=== PATIENT | female | born 1950 | race Caucasian/White ===

== ENCOUNTER 2017-07-27 18:47 | Emergency (ER) | payer MEDICARE, OTHER ==
[~2017-07-27] VITALS: Ht 162.6 cm; Wt 75.0 kg
[~2017-07-27 18:47] MED LIST: BECL0.07 INH; CALC-179 OR; CLAR10TA7 PO; GEMF600T PO; LISI-360 PO; MULT-65 PO; SERT50 PO
[2017-07-27 18:49] VITALS: BP 140/85; PULSE 90; RESP 13; TEMP 98.7; O2SAT 98
--- NOTE | 2017-07-27 19:22 | RADRPT ---
EXAM DATE/TIME: 07/27/2017 19:05 [facility] COMPARISON: No previous studies available for comparison. INDICATIONS : Patient fell today and complains of left ankle pain. MEDICAL HISTORY : None. SURGICAL HISTORY : None. ENCOUNTER: Initial ACUITY: 1 day PAIN SCORE: 2/10 LOCATION: Left Ankle FINDINGS: Three view exam was performed of the left ankle. The bony structures are in normal alignment. No ev idence of fracture, dislocation, or soft tissue swelling. The ankle mortise is intact. No radiopaqu e foreign bodies are seen. Bony mineralization is normal. CONCLUSION: No acute findings. Prominent calcaneal spur Contreras Herring MD on July 27, 2017 at 19:20 Board Certified Radiologist. This report was verified electronically.
[2017-07-27] MEDS ORDERED: DICL75TA PO (20:06)
--- NOTE | 2017-07-27 20:10 | PD ---
HPI Chief Complaint: Injury Time Seen by Provider: 20:01 Travel History International Travel<30 days: No Contact w/Intl Traveler<30days: No Traveled to known affect area: No History of Present Illness HPI 67-year-old white female presents to emergency Department with complaints of left ankle pain after inversion injury sustained in a hole this afternoon while walking in [place]. She states that she did not feel any pop or crack initially. She states that she was able to continue to walk throughout the day. When she had gotten home and taken a break she realizes that she cannot bear weight on her foot. She states the pain is severe. Worse weightbearing. Some relief with elevation. No other injuries. PFSH Past Medical History Arthritis: Yes Depression: Yes Cardiac Catheterization: Yes Diminished Hearing: No Tetanus Vaccination: < 5 Years Menopausal: Yes Tubal Ligation: Yes Past Surgical History Cholecystectomy: Yes Other Surgery: Yes (SURGERY TO REMOVE EXTRA BONE IN NECK AREA-THEN R ARM CLOT REMOVAL) Social History Alcohol Use: No Tobacco Use: No (FORMER QUIT MARCH 2016) Substance Use: No Allergies-Medications (Allergen,Severity, Reaction): Coded Allergies: acetaminophen (Unverified Allergy, Severe, 05/15/17) carisoprodol (Unverified Allergy, Severe, 05/15/17) oxycodone (Unverified Allergy, Severe, 05/15/17) pneumococcal vaccine (Unverified Allergy, Severe, 05/15/17) propoxyphene (Unverified Allergy, Severe, 05/15/17) diatrizoate meglumine (Unverified Allergy, Mild, 05/15/17) gadobenic acid (Unverified Allergy, Mild, 05/15/17) gadodiamide (Unverified Allergy, Mild, 05/15/17) gadoteridol (Unverified Allergy, Mild, 05/15/17) hydrocodone (Unverified Allergy, Mild, RASH, 05/15/17) iodixanol (Unverified Allergy, Mild, 05/15/17) iohexol (Unverified Allergy, Mild, 05/15/17) Reported Meds & Prescriptions Reported Meds & Active Scripts Active Reported Qvar (Beclomethasone Dipropionate) 40 Mcg Aer 1 Puff INH BID Multi-Vitamin Daily (Multivitamins) Daily Tab 1 Tab PO DAILY Calcium (Calcium & Phosphorus W/ Vitami) Tab 1 OR Lisinopril 10 Mg Tab 10 Mg PO DAILY Claritin (Loratadine) 10 Mg Tab 10 Mg PO DAILY Gemfibrozil 600 Mg Tab 600 Mg PO BID Zoloft (Sertraline HCl) 50 Mg Tab 50 Mg PO DAILY Review of Systems General / Constitutional: No: Fever Eyes: No: Visual changes HENT: No: Headaches Cardiovascular: No: Chest Pain or Discomfort Respiratory: No: Shortness of Breath Gastrointestinal: No: Abdominal Pain Genitourinary: No: Dysuria Musculoskeletal: Positive: Arthralgias, Limited ROM, Edema, Pain, No: Weakness Skin: No Rash Neurologic: No: Weakness Psychiatric: No: Depression Endocrine: No: Polydipsia Hematologic/Lymphatic: No: Easy Bruising Physical Exam Narrative GENERAL: This is a well-nourished, well-developed patient, in no apparent distress. SKIN: No rashes, ecchymoses or lesions. Warm and dry. HEAD: Atraumatic. Normocephalic. EYES: PERRL, EOMI, no discharge or injection. No scleral icterus. EARS: Clear NOSE: Nasal turbinates appear normal. THROAT: Mucosa pink and moist. Airway patent. NECK: Trachea midline. supple, moves head freely. LUNGS: Clear to auscultation. CV: Regular in rhythm. ABDOMEN: Soft nontender. EXT: No clubbing cyanosis. Examination of left lower extremity reveals pain to the anterior talar fibular ligament region of the left foot and ankle. There is no pain in distal forefoot, heel, Achilles, mediolateral malleolus. There is minimal swelling. The skin is intact. She has intact sensation with good distal pulses. No pain in the or hip. Right lower extremity as well as upper extremities are without localizing bony tenderness or deformity. Neurovascular intact. Data Data Last Documented VS Vital Signs Date Time Temp Pulse Resp B/P (MAP) Pulse Ox O2 Delivery O2 Flow Rate FiO2 07/27/17 18:49 98.7 90 13 140/85 (103) 98 Orders Orders Ankle, Complete ([id number]) (07/27/17 ) Ice/Cold Pack (07/27/17 20:03) Splint Or Brace Apply/Monitor (07/27/17 20:03) Crutches (07/27/17 20:03) Ibuprofen (Motrin) (07/27/17 20:15) Ed Discharge Order (07/27/17 20:03) [facility] Medical Decision Making Medical Screen Exam Complete: Yes Emergency Medical Condition: Yes Medical Record Reviewed: Yes Interpretation(s) Last 24 hours Impressions Ankle X-Ray 07/27/17 0000 Signed Impressions: Service Date/Time: Sunday, July 27, 2017 19:05 - CONCLUSION: No acute findings. Prominent calcaneal spur Contreras Herring MD Differential Diagnosis MDM: High Differential diagnoses: Fracture, sprain, strain, dislocation, contusion, neurovascular injury Narrative Course X-ray of the left ankle is negative for bony injury. Patient's given Kash wrap, crutches, Motrin 600 mg by mouth, ice pack applied. This is left ankle sprain Diagnosis Primary Impression: left ankle sprain Patient Instructions: General Instructions Additional Instructions: Rest. Elevation. Ice packs for the next 3 days. Kash wrap and crutches. No weight-bearing and then progress to weight-bearing as tolerated. Medications as directed Follow-up with an orthopedist or your doctor in one week. Return to the ER if any problems Med/Other Pt SpecificInfo: Prescription(s) given Scripts Diclofenac Sodium DR (Diclofenac Sodium DR) 75 Mg Tabdr 75 MG PO BID, #14 TAB 0 Refills Prov: Narinder Gerber MD 07/27/17 Disposition: 01 DISCHARGE HOME Condition: Stable Contreras Reynolds Jul 27, 2017 20:10
[2017-07-27] MEDS ORDERED: IBUPROFEN 600 MG TAB PO ONE (20:15)
== END 2017-07-27 20:47 | disposition home or self-care (01) ==
LOC: NEPK 18:47
DX: S93.402A Sprain of unspecified ligament of left ankle, initial encounter (principal); X50.1XXA Overexertion from prolonged static or awkward postures, initial encounter; Y93.01 Activity, walking, marching and hiking; M19.90 Unspecified osteoarthritis, unspecified site; F32.9 Major depressive disorder, single episode, unspecified
CPT/HCPCS: 73610; 99283; E0113

== ENCOUNTER 2017-09-19 07:57 | Emergency (ER) | payer MEDICARE, OTHER ==
[~2017-09-19] VITALS: Ht 162.6 cm; Wt 75.0 kg
[~2017-09-19 07:57] MED LIST changes: +DICL75TA PO
[2017-09-19 07:58] VITALS: BP 127/60; PULSE 101; RESP 16; TEMP 100.1; O2SAT 95
[2017-09-19] MEDS ORDERED: SERT-132 PO (08:22)
--- NOTE | 2017-09-19 09:48 | PD ---
HPI Chief Complaint: Cold / Flu Symptoms Time Seen by Provider: 08:14 Travel History International Travel<30 days: No Contact w/Intl Traveler<30days: No Traveled to known affect area: No History of Present Illness HPI This is a 67-year-old female who presents to the emergency department with dry cough, body aches and fever for 3 days ever since she came off of the cruciate, constant, moderate severity with no associated vomiting. She has had some loose stools. She was told to days ago by her primary care doctor that she probably has the flu. She was given some codeine cough syrup but she feels like she is just getting worse. She does have a long smoking history but she hasn't smoked in 2 years. PFSH Past Medical History Arthritis: Yes Depression: Yes Cardiac Catheterization: Yes Diminished Hearing: No Deep Vein Thrombosis: Yes Tetanus Vaccination: > 5 Years Influenza Vaccination: Yes Menopausal: Yes Tubal Ligation: Yes Past Surgical History Cholecystectomy: Yes Other Surgery: Yes (SURGERY TO REMOVE EXTRA BONE IN NECK AREA-THEN R ARM CLOT REMOVAL) Social History Alcohol Use: No Tobacco Use: No (FORMER QUIT MARCH 2016) Substance Use: No Allergies-Medications (Allergen,Severity, Reaction): Coded Allergies: acetaminophen (Unverified Allergy, Severe, 09/19/17) carisoprodol (Unverified Allergy, Severe, 09/19/17) oxycodone (Unverified Allergy, Severe, 09/19/17) pneumococcal vaccine (Unverified Allergy, Severe, 09/19/17) propoxyphene (Unverified Allergy, Severe, 09/19/17) diatrizoate meglumine (Unverified Allergy, Mild, 09/19/17) gadobenic acid (Unverified Allergy, Mild, 09/19/17) gadodiamide (Unverified Allergy, Mild, 09/19/17) gadoteridol (Unverified Allergy, Mild, 09/19/17) hydrocodone (Unverified Allergy, Mild, RASH, 09/19/17) iodixanol (Unverified Allergy, Mild, 09/19/17) iohexol (Unverified Allergy, Mild, 09/19/17) Reported Meds & Prescriptions Reported Meds & Active Scripts Active Reported Sertraline (Sertraline HCl) 50 Mg Tab 50 Mg PO DAILY Review of Systems Except as stated in HPI: all other systems reviewed are Neg Physical Exam Narrative GENERAL:Well appearing, no acute distress SKIN: Focused skin assessment warm and dry. HEAD: Atraumatic. Normocephalic. EYES: Pupils equal and round. No injection or drainage. ENT: Moist mucous membranes NECK: Trachea midline. CARDIOVASCULAR: Regular rate and rhythm. No murmur appreciated. RESPIRATORY: Diffuse expiratory wheezing, no Rales, no tachypnea or increased work of breathing GASTROINTESTINAL: Abdomen soft, non-tender, nondistended. MUSCULOSKELETAL: No obvious deformities. NEUROLOGICAL: Awake and alert. No obvious cranial nerve deficits. Moving all extremities. PSYCHIATRIC: Appropriate mood and affect; insight and judgment normal. Data Data Last Documented VS Vital Signs Date Time Temp Pulse Resp B/P (MAP) Pulse Ox O2 Delivery O2 Flow Rate FiO2 09/19/17 08:11 103 18 98 Room Air 09/19/17 07:58 100.1 127/60 (82) Orders Orders Influenzae A/B Antigen (09/19/17 08:22) MDM Medical Decision Making Medical Screen Exam Complete: Yes Emergency Medical Condition: Yes Interpretation(s) Temperature is 100.1, tachycardic Differential Diagnosis Influenza, bronchitis, pneumonia, sepsis Narrative Course This is a 67-year-old female who presents to the emergency department with cough and flulike symptoms. She is positive for influenza A. She is wheezing on exam. Given her extensive smoking history of think it's reasonable to treat her with Tamiflu. She'll also be prescribed prednisone and bronchodilators as I think this will improve her symptoms given her wheezing. I think she is appropriate for outpatient management. Diagnosis Primary Impression: Bronchitis with influenza Patient Instructions: General Instructions Additional Instructions: If you develop severe shortness of breath, chest pain, or difficulty breathing return to the emergency department. Use albuterol every 4 hours for the next 2 days. Then use as needed for wheezing. Complete your course of steroids. Follow up with your primary care physician in 2-3 days if your symptoms have not improved. Med/Other Pt SpecificInfo: Prescription(s) given Scripts Spacer/Device For Mdi (Inspirease Drug Delivery) 1 Ea Mis EA .ROUTE DIRECTED, #1 0 Refills Prov: Christelle Lisa MD 09/19/17 Prednisone (Prednisone) 20 Mg Tab 40 MG PO DAILY, #10 TAB 0 Refills Take 40 mg (2 tablets) daily for 5 days Prov: Christelle Lisa MD 09/19/17 Oseltamivir (Tamiflu) 75 Mg Cap 75 MG PO BID for Mgmt Viral Infection for 5 Days, #10 CAP 0 Refills Prov: Christelle Lisa MD 09/19/17 Disposition: 01 DISCHARGE HOME Condition: Stable Christelle Lisa MD Sep 19, 2017 09:48
[2017-09-19] MEDS ORDERED: INSPIREASE DRUG1 EA (10:04)
[2017-09-19] MEDS ORDERED: PRED20 PO (10:04)
[2017-09-19] MEDS ORDERED: OSEL75 PO (10:04)
== END 2017-09-19 10:31 | disposition home or self-care (01) ==
LOC: NEPC 07:57
DX: J11.1 Influenza due to unidentified influenza virus with other respiratory manifestations (principal); J20.8 Acute bronchitis due to other specified organisms; M19.90 Unspecified osteoarthritis, unspecified site; F32.9 Major depressive disorder, single episode, unspecified; Z86.718 Personal history of other venous thrombosis and embolism; Z87.891 Personal history of nicotine dependence; Z79.899 Other long term (current) drug therapy; Z88.6 Allergy status to analgesic agent; Z88.5 Allergy status to narcotic agent
CPT/HCPCS: 87804; 99284

== ENCOUNTER 2017-09-24 08:58 | Emergency (ER) | payer MEDICARE ==
[~2017-09-24] VITALS: Ht 162.6 cm; Wt 75.0 kg
[~2017-09-24 08:58] MED LIST changes: -BECL0.07 INH; -CALC-179 OR; -CLAR10TA7 PO; -DICL75TA PO; -GEMF600T PO; +INSPIREASE DRUG1 EA; -LISI-360 PO; -MULT-65 PO; +OSEL75 PO; +PRED20 PO; +SERT-132 PO; -SERT50 PO
[2017-09-24 09:03] VITALS: BP 104/87; PULSE 76; RESP 20; TEMP 97.3; O2SAT 95
[2017-09-24] MEDS ORDERED: KETOROLAC TROMETHAMINE 30 MG/ML (IVP) VIAL IV PUSH ONE (09:30)
[2017-09-24] MEDS ORDERED: SODIUM CHLOR 0.9% 1000 ML INJ 1,000 ML IV ONE (09:30)
[2017-09-24] MEDS ORDERED: SODIUM CHLORIDE 0.9% FLUSH 10 ML FLUSH IVF PRN (09:30)
--- NOTE | 2017-09-24 09:49 | PD ---
HPI Chief Complaint: Respiratory Symptoms Time Seen by Provider: 09:29 Travel History International Travel<30 days: No Contact w/Intl Traveler<30days: No Traveled to known affect area: No History of Present Illness HPI 67-year-old otherwise healthy female presents to the emergency room for evaluation of substernal chest pain that only occurs with deep breathing or coughing. Patient came to the emergency room 5 days ago and was diagnosed the flu and bronchospasm. She was given prescription for prednisone, Tamiflu, and Z -Jose Angel. States she couldn't take the prednisone or Z-Jose Angel because they made her nauseous and throw up. She could not afford the Tamiflu. She denies any significant cardiac or lung history. Patient states she was given cough syrup with codeine in the past and it did not help her. Patient states the sore throat and congestion symptoms have improved but the cough is persistent and causing her to have a headache. PFSH Past Medical History Arthritis: Yes Depression: Yes Cardiac Catheterization: Yes Diminished Hearing: No Deep Vein Thrombosis: Yes Menopausal: Yes Tubal Ligation: Yes Past Surgical History Cholecystectomy: Yes Other Surgery: Yes (SURGERY TO REMOVE EXTRA BONE IN NECK AREA-THEN R ARM CLOT REMOVAL) Social History Alcohol Use: No Tobacco Use: No (FORMER QUIT MARCH 2016) Substance Use: No Allergies-Medications (Allergen,Severity, Reaction): Coded Allergies: acetaminophen (Unverified Allergy, Severe, 09/19/17) carisoprodol (Unverified Allergy, Severe, 09/19/17) oxycodone (Unverified Allergy, Severe, 09/19/17) pneumococcal vaccine (Unverified Allergy, Severe, 09/19/17) propoxyphene (Unverified Allergy, Severe, 09/19/17) diatrizoate meglumine (Unverified Allergy, Mild, 09/19/17) gadobenic acid (Unverified Allergy, Mild, 09/19/17) gadodiamide (Unverified Allergy, Mild, 09/19/17) gadoteridol (Unverified Allergy, Mild, 09/19/17) hydrocodone (Unverified Allergy, Mild, RASH, 09/19/17) iodixanol (Unverified Allergy, Mild, 09/19/17) iohexol (Unverified Allergy, Mild, 09/19/17) prednisone (Verified Adverse Reaction, Severe, states believes caused nausea, 09/24/17) Uncoded Allergies: zpack (Adverse Reaction, Severe, vomiting, 09/24/17) Reported Meds & Prescriptions Reported Meds & Active Scripts Active Reported Sertraline (Sertraline HCl) 50 Mg Tab 50 Mg PO DAILY Review of Systems Except as stated in HPI: all other systems reviewed are Neg Physical Exam Narrative GENERAL: Well-nourished, well-developed female in no acute distress. Afebrile. Ambulatory. SKIN: Focused skin assessment warm/dry. HEAD: Normocephalic. EYES: No scleral icterus. No injection or drainage. NECK: Supple, trachea midline. No JVD or lymphadenopathy. CARDIOVASCULAR: Regular rate and rhythm without murmurs, gallops, or rubs. RESPIRATORY: Breath sounds equal bilaterally. No accessory muscle use. No crackles, rales, wheezes, or rhonchi. PSYCHIATRIC: No delusional thought processes. No hallucinations. Data Data Last Documented VS Vital Signs Date Time Temp Pulse Resp B/P (MAP) Pulse Ox O2 Delivery O2 Flow Rate FiO2 09/24/17 09:44 Room Air 95 09/24/17 09:03 97.3 76 20 104/87 (93) 95 Orders Orders Electrocardiogram (09/24/17 09:27) Basic Metabolic Panel (Bmp) (09/24/17 09:27) Ckmb (Isoenzyme) Profile (09/24/17 09:27) Complete Blood Count With Diff (09/24/17 09:27) Troponin I (09/24/17 09:27) Ecg Monitoring (09/24/17 09:27) Bilateral Bp Monitoring (09/24/17 09:27) Iv Access Insert/Monitor (09/24/17 09:27) Oximetry (09/24/17 09:27) Oxygen Administration (09/24/17 09:27) Sodium Chloride 0.9% Flush (Ns Flush) (09/24/17 09:30) Chest, Pa & Lat (09/24/17 09:27) Sodium Chlor 0.9% 1000 Ml Inj (Ns 1000 M (09/24/17 09:30) Ketorolac Inj (Toradol Inj) (09/24/17 09:30) Labs Laboratory Tests Test 09/24/17 09:40 White Blood Count 6.3 TH/MM3 Red Blood Count 5.12 MIL/MM3 Hemoglobin 15.1 GM/DL Hematocrit 43.7 % Mean Corpuscular Volume 85.4 FL Mean Corpuscular Hemoglobin 29.5 PG Mean Corpuscular Hemoglobin Concent 34.5 % Red Cell Distribution Width 13.2 % Platelet Count 143 TH/MM3 Mean Platelet Volume 9.0 FL Neutrophils (%) (Auto) 59.8 % Lymphocytes (%) (Auto) 28.2 % Monocytes (%) (Auto) 10.5 % Eosinophils (%) (Auto) 0.8 % Basophils (%) (Auto) 0.7 % Neutrophils # (Auto) 3.8 TH/MM3 Lymphocytes # (Auto) 1.8 TH/MM3 Monocytes # (Auto) 0.7 TH/MM3 Eosinophils # (Auto) 0.0 TH/MM3 Basophils # (Auto) 0.0 TH/MM3 CBC Comment DIFF FINAL Differential Comment Blood Urea Nitrogen 19 MG/DL Creatinine 0.69 MG/DL Random Glucose 120 MG/DL Calcium Level 8.9 MG/DL Sodium Level 140 MEQ/L Potassium Level 3.4 MEQ/L Chloride Level 107 MEQ/L Carbon Dioxide Level 24.2 MEQ/L Anion Gap 9 MEQ/L Estimat Glomerular Filtration Rate 85 ML/MIN Total Creatine Kinase 35 U/L Troponin I LESS THAN 0.02 NG/ML MDM Medical Decision Making Medical Screen Exam Complete: Yes Emergency Medical Condition: Yes Medical Record Reviewed: Yes Differential Diagnosis Pneumonia, upper respiratory infection, noncompliance Narrative Course 67 year-old male presents to the emergency room for evaluation of cough for the past 1 week. Patient came to ED 5 days ago for flu-like symptoms and was diagnosed with flu. She could not fill the tamiflu and had nausea from the Z- jose angel and prednisone so she did not take them. Returns today complaining of persistent cough and chest pain with coughing. No pain at rest. CBC and BMP are unremarkable. Troponin and CKMB are unremarkable. EKG shows sinus bradycardia with a rate of 50 bpm. Otherwise unremarkable, signed by attending physician, Dr. Grider. Chest x-ray shows no acute findings. Patient was given IV Toradol for pain. Patient has persistent cough from influenza. No concerned for cardiac etiology. Vital signs are stable. She is well- appearing. Lungs sounds clear and equal bilaterally. No indication for admission at this time. She was offered Tessalon Perles and told to follow-up with her primary care physician or return for worsening symptoms. She understands and agrees to plan. Diagnosis Primary Impression: Influenza A Additional Impression: Cough Referrals: Primary Care Physician Additional Instructions: Rest and drink plenty of fluids. Tessalon Perles as directed, as needed for cough. Take ibuprofen with food as directed, as needed for pain. Follow-up with a primary care physician. Return to the emergency room for worsening symptoms. Disposition: 01 DISCHARGE HOME Condition: Stable Cha Swanson Sep 24, 2017 09:48
[2017-09-24 09:56] LABS: AUTOMATED NEUTROPHIL # 3.8 TH/MM3 (1.8-7.7); BASOPHIL % 0.7 % (0.0-2.0); EOSINOPHIL % 0.8 % (0.0-4.0); HEMATOCRIT 43.7 % (35.0-46.0); HEMOGLOBIN 15.1 GM/DL (11.6-15.3); LYMPH % 28.2 % (9.0-44.0); LYMPHOCYTE # 1.8 TH/MM3 (1.0-4.8); MEAN CELL VOLUME 85.4 FL (80.0-100.0); MEAN CORPUSCULAR HEMOGLOBIN 29.5 PG (27.0-34.0); MEAN CORPUSCULAR HGB CONC 34.5 % (32.0-36.0); MONO % 10.5 % (0.0-8.0); MONOCYTE # 0.7 TH/MM3 (0-0.9); NEUT % 59.8 % (16.0-70.0); PLATELET COUNT 143 TH/MM3 (150-450); RED BLOOD COUNT 5.12 MIL/MM3 (4.00-5.30); RED CELL DISTRIBUTION WIDTH 13.2 % (11.6-17.2); WHITE BLOOD COUNT 6.3 TH/MM3 (4.0-11.0)
--- NOTE | 2017-09-24 10:11 | RADRPT ---
EXAM DATE/TIME: 09/24/2017 09:49 [facility] COMPARISON: No previous studies available for comparison. INDICATIONS : Chest pain. Nurse states patient positive for flu. MEDICAL HISTORY : Arthritis. Hypertension. Gastroesophageal reflux disease. Right upper extremity. SURGICAL HISTORY : None. Cholecystectomy. Tubal ligation. Blood clot in right arm removed. Cervical rib bone removed. Left wirst carpal tunnel release. Cardiac catheterization. Angiogram.Ovarian cyst removed. Breast bio psy. ENCOUNTER: Initial ACUITY: 1 week PAIN SCORE: 8/10 LOCATION: Bilateral chest FINDINGS: The lungs are clear. The heart is minimally enlarged. The pulmonary vascularity is normal. There is n o evidence for infiltrate or failure. The portion of the bony skeleton visualized is unremarkable. CONCLUSION: Compensated cardiomegaly otherwise negative Frederic Valentin MD FACR on September 24, 2017 at 10:09 Board Certified Radiologist. This report was verified electronically.
[2017-09-24 10:15] LABS: BICARBONATE 24.2 MEQ/L (21.0-32.0); BLOOD UREA NITROGEN 19 MG/DL (7-18); CALCIUM 8.9 MG/DL (8.5-10.1); CHLORIDE 107 MEQ/L (98-107); CREATININE 0.69 MG/DL (0.50-1.00); GLOMERULAR FILTRATION RATE 85 ML/MIN (>89); GLUCOSE,RANDOM 120 MG/DL (74-106); SODIUM (NA) 140 MEQ/L (136-145)
[2017-09-24 10:19] LABS: TROPONIN I LESS THAN 0.02 NG/ML (0.02-0.05)
[2017-09-24] MEDS ORDERED: BENZ100 PO (10:49)
--- NOTE | 2017-09-24 13:57 | EKG ---
Date Performed: 09/24/2017 Time Performed: 09:39:23 PTAGE: 67 years EKG: SINUS BRADYCARDIA NONSPECIFIC ST ABNORMALIT ABNORMAL ECG PREVIOUS TRACING : 08/14/2009 13.18 No change from previous tracing noted. DOCTOR: Yunior Malloy Interpretating Date/Time 09/24/2017 13:57:10
== END 2017-09-24 11:00 | disposition home or self-care (01) ==
LOC: NEPD 08:58
DX: J09.X2 Influenza due to identified novel influenza A virus with other respiratory manifestations (principal); I51.7 Cardiomegaly; R00.1 Bradycardia, unspecified; R94.31 Abnormal electrocardiogram [ECG] [EKG]; M19.90 Unspecified osteoarthritis, unspecified site; F32.9 Major depressive disorder, single episode, unspecified; Z86.718 Personal history of other venous thrombosis and embolism; Z87.891 Personal history of nicotine dependence; Z79.899 Other long term (current) drug therapy
CPT/HCPCS: 71020; 80048; 82550; 84484; 85025; 93005; 96361; 96374; 99285; J1885; J7030